=== PATIENT | female | born 1995 | race African-American/Black ===

== ENCOUNTER 2018-06-13 09:02 | Emergency (ER) ==
[2018-06-13 09:08] VITALS: BP 107/74; TEMP 98.7; BMI 23.5
--- NOTE | 2018-06-13 09:46 | ED.PDOC ---
General ED Provider: Dr. SANDI PARSON Chief Complaint: Abdominal Pain Stated Complaint: Patient is a 23 year old female who comes to the ER with Abdominal cramping that started 2 weeks ago when she had her period which she states was heavy. Then she started spotting yesterday. She take control pills Time Seen by Physician: 09:20 Mode of Arrival: Walk-In Information Source: Patient Exam Limitations: No limitations Nursing and Triage Documentation Reviewed and Agree: Yes Does patient meet sepsis criteria?: Yes If yes, has appropriate treatment been initiated?: Yes System Inflammatory Response Syndrome: Not Applicable Sepsis Protocol: For patient's 13 years and over: Temp is 96.8 and below OR 101 and greater Pulse >90 BPM Resp >20/minute Acutely Altered Mental Status Are patient's symptoms suggestive of a new infection, such as: -Pneumonia -Skin, Soft Tissue -Endocarditis -UTI -Bone, Joint Infection -Implantable Device -Acute Abdominal Infection -Wound Infection -Meningitis -Blood Stream Catheter Infection -Unknown Review of Systems - Review Of Systems Constitutional: Reports: No symptoms Eyes: Reports: No symptoms Ears, Nose, Mouth, Throat: Reports: No symptoms Respiratory: Reports: No symptoms Cardiac: Reports: No symptoms GI: Reports: Abdominal pain : Reports: No symptoms Musculoskeletal: Reports: No symptoms Skin: Reports: No symptoms Neurological: Reports: Anxiety Endocrine: Reports: No symptoms Hematologic/Lymphatic: Reports: No symptoms All Other Systems: Reviewed and Negative Past Medical History - Past Medical History Previously Healthy: Yes Endocrine: Reports: None Cardiovascular: Reports: None Respiratory: Reports: None Hematological: Reports: None Gastrointestinal: Reports: None Genitourinary: Reports: None Neuro/Psych: Reports: None Musculoskeletal: Reports: None Cancer: Reports: None Last Menstrual Period: 2 WEEKS AGO - Surgical History General Surgical History: Reports: Other (LEEP) - Family History Family History: Reports: None - Social History Smoking Status: Never smoker Hx Substance Use: No Alcohol Screening: Occasionally Physical Exam - Physical Exam Appearance: Ill-appearing Ill-appearing: Mild Pain Distress: Moderate Respiratory: Airway patent, Breath sounds clear, Breath sounds equal, Respirations nonlabored Cardiovascular: RRR, Pulses normal, No rub, No murmur GI/: Soft, Nontender, No masses, Bowel sounds normal, No Organomegaly Musculoskeletal: Normal strength, ROM intact, No edema, No calf tenderness Skin: Warm, Dry, Normal color Neurological: Sensation intact, Motor intact, Reflexes intact, Cranial nerves intact, Alert, Oriented Psychiatric: Anxious Interpretation - Radiology Interpretation Radiology Interpretation By: Radiologist Radiology Results: Negative Exam Interpreted: CT Scan Critical Care Note - Critical Care Note Total Time (mins): 0 Course - Course Hematology/Chemistry: 06/13/18 09:50 06/13/18 09:50 Orders, Labs, Meds: Lab Review 06/13/18 06/13/18 06/13/18 09:50 09:50 09:50 WBC 7.63 RBC 4.41 Hgb 12.2 Hct 37.5 MCV 85.0 MCH 27.7 MCHC 32.5 RDW Coeff of Dana 12.1 Plt Count 218 Immature Gran % (Auto) 0.4 Neut % (Auto) 58.7 Lymph % (Auto) 31.3 Leake % (Auto) 6.7 Eos % (Auto) 2.5 Baso % (Auto) 0.4 Immature Gran # (Auto) 0.0 Neut # (Auto) 4.5 Lymph # (Auto) 2.4 Leake # (Auto) 0.5 Eos # (Auto) 0.2 Baso # (Auto) 0.0 Sodium 136 Potassium 3.7 Chloride 105 Carbon Dioxide 24 Anion Gap 10.7 BUN 10 Creatinine 0.81 Estimated GFR (MDRD) 104.00 BUN/Creatinine Ratio 12.34 Glucose 88 Calcium 8.4 Total Bilirubin 0.5 AST 13 L ALT 9 L Alkaline Phosphatase 41 L Total Protein 6.4 Albumin 2.9 L Globulin 3.5 Albumin/Globulin Ratio 0.83 Amylase 75 Lipase 35 Urine Color Yellow Urine Clarity Clear Urine pH 6.5 Ur Specific [place] 1.025 Urine Protein 1+ Urine Glucose (UA) Negative Urine Ketones Trace Urine Blood 2+ Urine Nitrite Negative Urine Bilirubin 1+ Urine Urobilinogen >=8.0 Ur Leukocyte Esterase 1+ Urine Microscopic RBC 5-10 Urine Microscopic WBC 5-10 Ur Squamous Epith Cells 5-10 Urine Bacteria 1+ Urine Mucus 1+ Urine Test 06/13/18 09:50 WBC RBC Hgb Hct MCV MCH MCHC RDW Coeff of [place] Plt Count Immature Gran % (Auto) Neut % (Auto) Lymph % (Auto) Leake % (Auto) Eos % (Auto) Baso % (Auto) Immature Gran # (Auto) Neut # (Auto) Lymph # (Auto) Leake # (Auto) Eos # (Auto) Baso # (Auto) Sodium Potassium Chloride Carbon Dioxide Anion Gap BUN Creatinine Estimated GFR (MDRD) BUN/Creatinine Ratio Glucose Calcium Total Bilirubin AST ALT Alkaline Phosphatase Total Protein Albumin Globulin Albumin/Globulin Ratio Amylase Lipase Urine Color Urine Clarity Urine pH Ur Specific [place] Urine Protein Urine Glucose (UA) Urine Ketones Urine Blood Urine Nitrite Urine Bilirubin Urine Urobilinogen Ur Leukocyte Esterase Urine Microscopic RBC Urine Microscopic WBC Ur Squamous Epith Cells Urine Bacteria Urine Mucus Urine Test Negative Orders Category Date Time Status ED IV/MEDIPORT/POWERPORT .ONCE EMERGENCY 06/13/18 10:01 Active AMYLASE Stat LAB 06/13/18 09:50 Completed CBC W/ AUTO DIFF Stat LAB 06/13/18 09:50 Completed COMPREHENSIVE METABOLIC PANEL Stat LAB 06/13/18 09:50 Completed LIPASE Stat LAB 06/13/18 09:50 Completed URINALYSIS C & S IF INDICATED Stat LAB 06/13/18 09:50 Completed URINE CULTURE Stat LAB 06/13/18 09:50 Received URINE Stat LAB 06/13/18 09:50 Completed 0.9 % Sodium Chloride [Saline Flush] MEDS 06/13/18 10:02 Discontinued 1 syr IVF PRN PRN Ketorolac Tromethamine [Toradol] MEDS 06/13/18 10:05 Discontinued 60 mg IM ONCE STA Ondansetron HCl/Pf [Zofran 4 mg/2 ml] MEDS 06/13/18 10:01 Discontinued 4 mg IM ONCE STA CT ABD/PEL WO RENAL STONE PROT Stat RADS 06/13/18 10:02 Completed Medications Discontinued Medications Generic Name Dose Route Start Last Admin Trade Name Freq PRN Reason Stop Dose Admin Ketorolac Tromethamine 60 mg 06/13/18 10:05 06/13/18 10:40 Toradol IM 06/13/18 10:06 Not Given ONCE STA Ondansetron HCl 4 mg 06/13/18 10:01 06/13/18 10:40 Zofran 4 Mg/2 Ml IM 06/13/18 10:02 Not Given ONCE STA Sodium Chloride 1 syr 06/13/18 10:02 Saline Flush IVF PRN PRN To flush IV Vital Signs: Temp Pulse Resp BP Pulse Ox 06/13/18 09:03 98.7 F 92 H 18 107/74 98 Departure - Departure Time of Disposition: 10:43 Disposition: HOME SELF-CARE Discharge Problem: UTI (urinary tract infection) Qualifiers: Urinary tract infection type: acute cystitis Hematuria presence: with hematuria Qualified Code(s): N30.01 - Acute cystitis with hematuria Instructions: Urinary Tract Infection in Women (ED) Condition: Stable Pt referred to PMD for follow-up: Yes IPMP verified?: No Additional Instructions: Push fluids Take Medications as needed for pain Follow up with PCP in 3 days Prescriptions: Ibuprofen [Motrin] 600 mg PO Q6H PRN #30 tablet PRN Reason: Analgesia Nitrofurantoin 100 gm MC BID #10 powder Allergies/Adverse Reactions: Allergies No Known Allergies Allergy (Verified 06/13/18 09:08) Home Medications: Ambulatory Orders Control Pill 06/13/18 Ibuprofen [Motrin] 600 mg PO Q6H PRN #30 tablet 06/13/18 Nitrofurantoin 100 gm MC BID #10 powder 06/13/18
[2018-06-13] MEDS ORDERED: TORADOL IVP STA (10:01)
[2018-06-13] MEDS ORDERED: ZOFRAN 4 MG/2 ML IM STA (10:01)
[2018-06-13] MEDS ORDERED: TORADOL IM STA (10:05)
--- NOTE | 2018-06-13 10:27 | CT ---
Exam: CT abdomen pelvis without intravenous contrast. Comparison: None available. Reason for exam: Lower abdominal pain. FINDINGS: No pleural effusion, or focal consolidation in the partially imaged lung bases. The liver, spleen, adrenal glands, gallbladder, and pancreas appear grossly unremarkable within limit ations of a noncontrasted study. Image interpretation is limited by the lack of intravenous contrast administration. No hydronephrosis, hydroureter or nephrolithiasis is seen in either kidney. The appendix appears grossly unremarkable. No intra-abdominal free air or pelvic free fluid. The pelvic structures appear grossly unremarkable. The bladder is decompressed which limits interpretation. No suspicious appearing osteoblastic or osteolytic lesions. Impression: 1. No acute inflammatory findings are seen within the abdomen or pelvis. Imaging interpretation is limited by the lack of intravenous contrast. 2. The appendix appears unremarkable.
== END 2018-06-13 10:50 | disposition home or self-care (01) ==
LOC: ED 09:02
DX: N30.01 Acute cystitis with hematuria (principal)
CPT/HCPCS: 36415; 74176; 80053; 81001; 81025; 82150; 83690; 85025; 87086; 99283